=== PATIENT | female | born 1965 | race Caucasian/White ===

== ENCOUNTER 2019-12-31 10:49 | Emergency (ER) | payer OTHER, SELFPAY ==
[2019-12-31 11:00] VITALS: BP 115/74; PULSE 63; RESP 14; TEMP 36.4; O2SAT 100
--- NOTE | 2019-12-31 11:05 | ED.GENADULT ---
HPI - General Adult General Chief complaint: Dental/Oral Stated complaint: swelling on side of face Time Seen by Provider: 12/31/19 11:05 Source: patient and RN notes reviewed Mode of arrival: ambulatory Limitations: no limitations History of Present Illness HPI narrative: 54-year-old female presents with complaints of dental pain for the past 30 days Ibuprofen with little relief. Symptoms increased over the last 24-48 hours with increase pain and swelling to LT lower jaw. Denies any drainage. No fever or chills. No neck swelling. No limitation with speaking or swallowing. Has history of dental caries. Broke tooth 1 month ago unable to see dentist due to Covid-19 visrus. No dental trauma. No oral lesions. Exacerbating factors consist of chewing on LT side, eating and drinking cold items. Relieving factors limiting eating on LT side and avoiding cold items. No dentures or bridges. Tolerating liquids well. Mariam is postmenopausal 5 years. Denies diarrhea, abdominal pain, nausea, and vomiting. Denies headaches, weakness, fatigue, myalgia. Denies chest pain or dyspnea. Denies cough, rhinorrhea, congestion, and sore throat. Denies recent traveling. Denies concern for COVID-19 or exposures been home since [id number] order except for essential household needs and return home. Some parts of this dictation were generated by voice recognition software and may contain typographical and/or grammatical inaccuracies. Related Data Allergies Allergy/AdvReac Type Severity Reaction Status Date / Time No Known Allergies Allergy Verified 12/31/19 11:06 Review of Systems Review of Systems: Narrative: CONSTITUTIONAL: Denies fever, chills, sweats. EYES: Denies visual changes, redness, discharge. ENT: Denies rhinorrhea, congestion, sore throat, otalgia. Complains of LT lower dental pain and jaw swelling. CARDIOVASCULAR: Denies chest pain, palpitations, edema. RESPIRATORY: Denies dyspnea, wheezing, cough. GASTROINTESTINAL: Denies abdominal pain, nausea, vomiting, diarrhea. GENITOURINARY: Denies dysuria, hematuria, abnormal discharge. SKIN: Denies rash or itching. MUSCULOSKELETAL: Denies acute back pain, joint pain, or myalgia. NEUROLOGIC: Denies numbness or focal weakness. PSYCHIATRIC: Denies anxiety or depression. All systems reviewed & are unremarkable except as noted in HPI and below. [facility] Past Medical History Medical History (Updated 12/31/19 @ 11:38 by CRISTIAN Mckeon) Ankle fracture Anxiety delivery delivered Nose fracture , ectopic Surgical History Surgical History (Updated 12/31/19 @ 11:52 by CRISTIAN Mckeon) H/O section X2 History of ankle surgery RT History of dilation and curettage History of hernia surgery umbilical hernia Family History Family History Mother Family history of cardiovascular disease Family history of chronic obstructive pulmonary disease Grandparent Cerebrovascular accident Family history of malignant neoplasm of esophagus Father Family history of dementia Social History Social History (Updated 12/31/19 @ 11:39 by CRISTIAN Mckeon) Smoking packs per day: 10 Smoking cigarettes per day: 200.0 Years smoked: 30 Smoking pack-years: 300.00 Smoking status: Current every day smoker Tobacco type: cigarettes Second hand tobacco smoke exposure: No Alcohol intake: current Substance use: never Living arrangements: with family Occupation/Education: occupation Gender identity (if verbalized by the patient): Female Comments At time of signature, agree with nurse past medical, surgical, social, and family history. There is no relevant family history pertinent to the presenting complaint. Exam Narrative: Exam Narrative: GENERAL: This is a well-nourished, well-developed patient, in no apparent distress. Talks in full sentences ans ambulates with
== END 2019-12-31 11:25 | disposition home or self-care (01) ==
PROVIDERS: Emergency Provider Nurse Practitioner Family; PCP Family Medicine
DX: K04.7 Periapical abscess without sinus (principal); F17.210 Nicotine dependence, cigarettes, uncomplicated
CPT/HCPCS: 99213; G0463

== ENCOUNTER 2022-07-24 01:34 | Day surgery (SDC) | payer OTHER, SELFPAY ==
[2022-07-20 14:22] VITALS: BMI 21.9
--- NOTE | 2022-07-22 15:04 | PM.HPGS ---
History of Present Illness History of Present Illness Consent: Risks, benefits, and alternatives have been discussed and questions answered. Patient agrees to proceed with procedure. Chief complaint: Neoplasm Screening, Hx of Colon Polyps Narrative: Mariam Miller is a 57 year old female Referred for colonoscopy. She has a large tubular adenoma removed about 4 years ago [facility] Past Medical History Medical History Abnormal mammogram Actinic keratosis Ankle fracture Anxiety delivery delivered Nose fracture Other herpes zoster eye disease , ectopic Surgical History Surgical History H/O section X2 History of ankle surgery RT History of dilation and curettage History of hernia surgery umbilical hernia Family History Family History Mother Family history of cardiovascular disease Family history of chronic obstructive pulmonary disease Grandparent Cerebrovascular accident Family history of malignant neoplasm of esophagus Father Family history of dementia Social History Social History Smoking packs per day: 1 Smoking cigarettes per day: 20.0 Years smoked: 30 Smoking pack-years: 30.00 Smoking status: Current every day smoker Tobacco type: cigarettes Second hand tobacco smoke exposure: No Alcohol intake: current Alcohol use details: rarely Substance use: never Substance use type: does not use Living arrangements: with family Gender identity (if verbalized by the patient): Female Spiritual care concerns: No Meds Home Medications and Allergies Home Medications Medication Instructions Recorded Confirmed Type clonazepam 0.5 mg tablet 0.5 mg PO BID PRN anxiety #60 tabs 03/02/22 07/24/22 Rx Allergies Allergy/AdvReac Type Severity Reaction Status Date / Time No Known Allergies Allergy Verified 07/24/22 07:51 Assessment and Plan Assessment and plan (1) Screening for colon cancer: Code(s): Z12.11 - Encounter for screening for malignant neoplasm of colon Status: Acute Assessment and Plan: Colonoscopy with possible biopsy or polypectomy or cautery or injection of substances.
[2022-07-24 07:53] VITALS: BP 103/63; PULSE 64; RESP 16; TEMP 36.3; O2SAT 100
--- NOTE | 2022-07-24 07:59 | P.PNAN_ITS ---
Anes - Initial Pre Proc Eval Procedure: Operation Date: 07/24/22 09:00 Proposed Procedures p Screening Colonoscopy - Micky Montano MD Date/Time: 07/24/22 07:59 Surgeon: Micky Montano MD Pre Op Diagnosis: Neoplasm Screening, Hx of Colon Polyps Patient Data Age: 57 Gender: F Height: 1.63 m Weight: 59.9 kg Last Vital Signs Temp 36.3 C L 07/24/22 07:53 Pulse 64 07/24/22 07:53 Resp 16 07/24/22 07:53 BP 103/63 07/24/22 07:53 Pulse Ox 100 07/24/22 07:53 O2 Del Method Room Air 07/24/22 07:53 Allergies Allergy/AdvReac Type Severity Reaction Status Date / Time No Known Allergies Allergy Verified 07/24/22 07:51 Home Medications Medication Instructions Recorded Confirmed Type clonazepam 0.5 mg tablet 0.5 mg PO BID PRN anxiety #60 tabs 03/02/22 07/24/22 Rx Patient hx anesthesia problems: none Family hx anesthesia problems: none Results Review: All pre-operative results and documents have been reviewed as part of the pre- operative evaluation. [facility] Past Medical History Medical History Abnormal mammogram Actinic keratosis Ankle fracture Anxiety delivery delivered Nose fracture Other herpes zoster eye disease , ectopic Surgical History Surgical History H/O section X2 History of ankle surgery RT History of dilation and curettage History of hernia surgery umbilical hernia Family History Family History Mother Family history of cardiovascular disease Family history of chronic obstructive pulmonary disease Grandparent Cerebrovascular accident Family history of malignant neoplasm of esophagus Father Family history of dementia Social History Social History Smoking packs per day: 1 Smoking cigarettes per day: 20.0 Years smoked: 30 Smoking pack-years: 30.00 Smoking status: Current every day smoker Tobacco type: cigarettes Second hand tobacco smoke exposure: No Alcohol intake: current Alcohol use details: rarely Substance use: never Substance use type: does not use Living arrangements: with family Gender identity (if verbalized by the patient): Female Spiritual care concerns: No Anes - Eval Final PreProcedure Day of Procedure 07/24/22 07:59 Patient weight: normal Heart: regular rate and rhythm Lungs: clear to auscultation Airway: Mallampati scale class II Neurological: alert and oriented Last oral intake: >/= 8 hours Emergent: no Anesthetic plan: proceed Anesthesia type and monitoring: general GIVS and standard monitoring Results Review: All pre-operative results and documents have been reviewed as part of the pre- operative evaluation. Informed Consent: The patient's anesthetic plan and its attendant risks and benefits were discussed with the patient/family/POA. Questions were solicited and answers provided to the satisfaction of the patient/family/POA.
[2022-07-24] MEDS: LACTATED RINGERS 1,000 ML 150 ML IV CONT (08:00)
[2022-07-24 08:53] VITALS: BP 82/51; PULSE 61; RESP 16; O2SAT 97
[2022-07-24 09:03] VITALS: BP 77/52; PULSE 69; RESP 16; O2SAT 100
[2022-07-24 09:12] VITALS: BP 87/56; PULSE 60; RESP 16; O2SAT 100
== END 2022-07-24 09:22 | disposition home or self-care (01) ==
PROVIDERS: PCP Family Medicine; Visit Provider Internal Medicine Gastroenterology
PROC: 0DJD8ZZ Inspection of Lower Intestinal Tract, Via Natural or Artificial Opening Endoscopic (ICD-10-PCS; CPT 45378; principal; 2022-07-24 09:00)
DX: Z12.11 Encounter for screening for malignant neoplasm of colon (principal); Z86.010 Personal history of colon polyps; K64.8 Other hemorrhoids; F17.210 Nicotine dependence, cigarettes, uncomplicated
CPT/HCPCS: 45378; J2704; J7120

== ENCOUNTER → 2023-08-19 10:30 | Outpatient (CLI) | payer OTHER, SELFPAY ==
--- NOTE | ~2023-08-19 | MM_ITS ---
EXAMINATION: MM screening miesha BI w [facility] HISTORY: Screening mammogram TECHNIQUE: Craniocaudal and mediolateral oblique 3-D tomosynthesis images were obtained and synthetic 2-D images were generated. CAD analysis was submitted and interpreted. COMPARISON: 02/22/2019, 12/09/2017 BREAST PARENCHYMAL COMPOSITION:The breasts are heterogeneously dense, which may obscure small masses. FINDINGS: No suspicious mass, calcification, or architectural distortion are identified in either carl ast to suggest malignancy. There has been no suspicious interval change. IMPRESSION: No mammographic evidence of malignancy. Recommend routine screening mammography in one year. BI-RADS Category 1: Negative Reviewed, dictated and finalized at location . [facility]
== END ==
PROVIDERS: PCP Family Medicine; Visit Provider Nurse Practitioner Family
DX: Z12.31 Encounter for screening mammogram for malignant neoplasm of breast (principal)
CPT/HCPCS: 77063; 77067

== ENCOUNTER 2025-03-05 11:34 | Outpatient (CLI) | payer OTHER, SELFPAY ==
[2025-03-05 13:01] LABS: Alanine Aminotransferase 24 U/L (6-35); Albumin Level 4.3 g/dL (3.5-5.1); Alkaline Phosphatase 71 U/L (38-126); Anion Gap 6 mmol/L (4-12); Aspartate Amino Transferase 65 U/L (14-36); Bilirubin,Total 0.3 mg/dL (0.2-1.3); Blood Urea Nitrogen 14 mg/dL (7-17); Calcium 9.7 mg/dL (8.4-10.2); Carbon Dioxide 30 mmol/L (22-30); Chloride 104 mmol/L (98-107); Cholesterol 238 mg/dL (0-200); Estimated Glomerular Filt Rate > 60; Glucose 98 mg/dL (65-110); HDL Direct 61 mg/dL; Potassium 4.6 mmol/L (3.4-5.0); Sodium 140 mmol/L (137-145); Total Protein 7.2 g/dL (6.3-8.2); Triglycerides 92 mg/dL (<150)
[2025-03-05 13:13] LABS: LDL Cholesterol Direct 119 mg/dL
== END 2025-03-05 11:35 | disposition home or self-care (01) ==
LOC: ANHGOSHLAB 11:34
PROVIDERS: PCP Family Medicine; Visit Provider Nurse Practitioner Family
DX: Z00.00 Encounter for general adult medical examination without abnormal findings (principal); Z13.220 Encounter for screening for lipoid disorders
CPT/HCPCS: 36415; 80053; 80061; 84443